=== PATIENT | female | born 1965 | race American Indian/Alaskan Native ===

== ENCOUNTER 2016-05-02 09:25 | Day surgery (SDC) | payer MEDICARE, MEDICAID ==
[~2016-05-02 09:25] MED LIST: Betamethasone Acetate/Betamethasone Sod Phosphate 30 MG/5 ML MDV IM ONE; Bupivacaine 0.5% 10 ML SDV INJECT ONE; Lactated Ringers 1,000 ML IV SCH; Lidocaine 1% 30 ML SDV INJECT ONE; Sodium Chloride 0.9% 10 ML Syringe FLUSH PRN; ceFAZolin 1 GM in Premix Bag 1 BAG IV ONE
--- NOTE | 2016-05-02 10:23 | PCM.SN ---
- Free Text/Narrative Note: 04/22/16 1000 preop patients history and physical reviewed along with allergies and medications no history of complications with past anesthesia heart regular rhythm lungs clear history of insulin dependent diabetes Bipolar disorder alcohol abuse in the past hyperlipidemia npo 8 hrs glucose this am was 117 mallampati 2 asa 2 plan local with iv sedation this along with risks goals alternatives explained to patient and accepted
[2016-05-02] MEDS ORDERED: Lidocaine 1% 30 ML SDV ONE (10:56)
[2016-05-02] MEDS ORDERED: Betamethasone Acetate/Betamethasone Sod Phosphate 30 MG/5 ML MDV ONE ×2 (10:57→14:18)
[2016-05-02] MEDS ORDERED: Lidocaine 1% 30 ML SDV INJECT ONE ×4 (13:03→14:19)
[2016-05-02] MEDS ORDERED: Bupivacaine 0.5% 10 ML SDV INJECT ONE ×4 (13:03→14:19)
[2016-05-02] MEDS ORDERED: Bupivacaine 0.5% 10 ML SDV ONE (13:42)
[2016-05-02] MEDS ORDERED: Acetaminophen/oxyCODONE 325-5 MG Tab PO PRN (14:48)
--- NOTE | 2016-05-02 14:52 | PCM.OPNOTE ---
- General Post-Op/Procedure Note Date of Surgery/Procedure: 05/02/16 Operative Procedure(s): Left foot talonavicular joint exostectomy, plantar fibroma excision, sub talar joint injection Pre Op Diagnosis: Left foot painful spurring talonavicular joint, plantar fibroma, subtalar joint arthritis. Post-Op Diagnosis: anne-marie Anesthesia Technique: Local, MAC Primary Surgeon: Lizet Nj Anesthesia Provider: Mac Sofia Pathology: left foot mass EBL in mLs: 5 Complications: none Condition: Good Free Text/Narrative:: Patient tolerated procedure well and was transported to pacu with vss and vascular status intact to left foot. TT 67 mins. Well padded dressing applied with cam boot. pathology sent to lab.
[2016-05-02] MEDS ORDERED: Midazolam 1 MG/ML 2 ML SDV IV ONE (15:07)
[2016-05-02] MEDS ORDERED: fentaNYL 100 MCG/2 ML SDV IV ONE (15:07)
[2016-05-02] MEDS ORDERED: Ondansetron 4 MG/2 ML SDV IV ONE (15:07)
[2016-05-02] MEDS ORDERED: Dexamethasone 4 MG/ML SDV IV ONE (15:07)
[2016-05-02] MEDS ORDERED: Propofol 200 MG/20 ML SDV IV ONE (15:07)
[2016-05-02] MEDS ORDERED: Ketorolac 30 MG/ML SDV IVPUSH ONE (15:07)
--- NOTE | 2016-05-03 07:26 | PCM.SN ---
- Free Text/Narrative Note: 05/03/16 late entry 05/02/16 1500 postop patient recovered well from iv sedation eating drinking denies pain or nausea no apparent complications with anesthesia
--- NOTE | 2016-05-03 08:29 | OR ---
DATE: 05/02/2016 PREOPERATIVE DIAGNOSES: 1. Left foot talonavicular joint bone spur. 2. Left foot soft tissue mass. 3. Left foot subtalar joint arthritis. POSTOPERATIVE DIAGNOSES: 1. Left foot talonavicular joint bone spur. 2. Left foot soft tissue mass. 3. Left foot subtalar joint arthritis. PROCEDURES PERFORMED: 1. Left foot talonavicular joint exostectomy. 2. Left foot soft tissue mass excision. 3. Left foot subtalar joint injection. ANESTHESIA: Local MAC with preoperative local block of 10 mL of 1:1 mixture 1% lidocaine plain and 0.5% Marcaine plain. TOURNIQUET TIME: 67 minutes, pneumatic ankle tourniquet. ESTIMATED BLOOD LOSS: Minimal. SPECIMEN REMOVED: Left foot mass. COMPLICATIONS: None. INDICATIONS: Mervat is a 50-year-old female, who presents with left foot pain. She states that the foot is very tender and will grind when she walks. She has tried Voltaren gel to the area with no relief. She does do a lot of walking during the day and feels pain and grinding in the foot, also there is a painful lump on the bottom of her foot that has been there for a few years now. Her foot pain has been going on for many years, and at this point, she has exhausted conservative treatment. She does wear a tennis shoe at all times. X-rays of the left foot reveals significant subtalar joint arthritis with periarticular spurring present, there is bone spur at the dorsal navicular with an ossicle at the TN joint. The patient voiced good understanding of proposed procedure and possible complications and elects to have surgery at this time. DESCRIPTION OF THE PROCEDURE: The patient was taken to the operating room, lying in the supine position. After adequate anesthesia induction as described above, the left foot was prepped and draped in the usual sterile fashion. A pneumatic ankle tourniquet was inflated to 220 mmHg. Attention was then directed to the dorsal medial aspect of the right foot where an approximately 5 cm linear incision was made. Sharp dissection was made just medial to the anterior tibial tendon. Sharp and blunt dissection was performed down to the level of the talonavicular joint. Which was exposed using a 15 blade. Care was taken to avoid all neurovascular bundles at this point. The soft tissue and anterior tibial tendon was reflected dorsal and laterally and the talonavicular joint was exposed. At this point, a large bony ossicle was noted to be loose in this area and was completely removed using an osteotome. A rongeur was then used to remove the remainder of the bone spur on the dorsal aspect of the navicular and also the lip at the navicular cuneiform joint. A bone rasp was used to smooth out all bone edges, and the joints were identified and noted to be healthy in appearance. The area was then put through range of motion. There was no grinding or crepitus present. The area was irrigated with copious amounts of sterile saline, and deep capsular closure was completed with 3-0 Vicryl, and skin closure was completed with 4-0 nylon. Attention was then directed to the left medial plantar arch where there was a large soft tissue mass. An approximately 4 cm linear incision was made just medial to the soft- tissue mass. Sharp and blunt dissection was performed down to the level of the mass. There was a portion of the soft-tissue mass that was adhered to the overlying skin, and this was sharply dissected away from the skin. The soft- tissue mass was removed in total, and it was coming from the plantar fascia, I did remove a 1 cm margin around the entire mass. The area was then inspected for any remaining mass, and there was none left. I did send the mass to pathology. The area was then irrigated with copious amounts of sterile saline. Deep closure was completed with 3-0 Vicryl, and skin closure was completed with 4-0 nylon. The areas were then dressed with Xeroform to the incision sites, fluffs, Webril, and an Rupert wrap. The patient tolerated anesthesia and the procedure well and was transferred to the recovery room with vital signs stable and vascular status intact as noted by immediate hyperemia to all digits upon deflation of the ankle tourniquet. She was placed in a Cam boot nonweightbearing. She is then discharged home when she met hospital discharge requirements. [facility] /[id number]
--- NOTE | 2016-05-06 10:21 | EKG ---
05/02/2016- ALF M[facility] - EKG done on a 50-year-old female showing sinus rhythm, normal axis, heart rate of 80 beats per minute. No acute ST-T wave changes. Normal intervals. [facility] /[id number]
[2016-06-27 13:07] VITALS: BP 99/47
== END 2016-05-02 15:30 | disposition home or self-care (01) ==
LOC: DL.SDS 09:25
PROVIDERS: ATTEND Podiatrist
DX: M72.2 Plantar fascial fibromatosis (principal); E11.9 Type 2 diabetes mellitus without complications; E78.00 Pure hypercholesterolemia, unspecified; Z90.49 Acquired absence of other specified parts of digestive tract; Z98.890 Other specified postprocedural states; Z79.899 Other long term (current) drug therapy; Z79.4 Long term (current) use of insulin; F17.210 Nicotine dependence, cigarettes, uncomplicated
CPT/HCPCS: 01480; 27635; 28045; 88305; 93005; 93010; J0690; J0702; J1100; J1885; J2250; J2405; J2704; J3010; J7120

== ENCOUNTER 2016-09-21 09:46 | Emergency (ER) | payer MEDICARE, MEDICAID ==
--- NOTE | 2016-09-21 10:02 | EDM.PDOC ---
ED HPI GENERAL MEDICAL PROBLEM - General Stated Complaint: SWOLLEN LIPS ON RIGHT SIDE Time Seen by Provider: 09/21/16 09:55 Source of Information: Reports: Patient - History of Present Illness INITIAL COMMENTS - FREE TEXT/NARRATIVE: 51 yo female presents with swelling and pain to right lower jaw. States that swelling began 2 days ago. She is concerned for infection. States that she has not had problems with her tooth before in this location. Denies fever, chills or other complaints. Onset Date: 09/19/16 Duration: Getting Worse Location: Reports: Face Quality: Reports: Ache Severity: Moderate Improves with: Reports: None Worsens with: Reports: None Associated Symptoms: Reports: No Other Symptoms Treatments [employer]: Reports: NSAIDS (ibuprofen) Right Face Pain Score (Numeric/FACES): 8 - Related Data Allergies Allergy/AdvReac Type Severity Reaction Status Date / Time No Known Allergies Allergy Verified 09/11/16 12:02 Home Meds: Home Meds Insulin Detemir [Levemir Flextouch] 40 units SQ BEDTIME 06/11/15 [History] Insulin Lispro [HumaLOG] 10 units SQ TIDMEALS 06/11/15 [History] Oxybutynin [Oxybutynin ER] 10 mg PO DAILY 06/11/15 [History] Pregabalin [Lyrica] 150 mg PO DAILY 06/11/15 [History] Venlafaxine HCl [Venlafaxine ER] 150 mg PO DAILY 06/11/15 [History] atorvaSTATin [Lipitor] 20 mg PO BEDTIME 06/11/15 [History] metFORMIN HCl [Metformin HCl] 1,000 mg PO BIDMEALS 06/11/15 [History] traZODone 300 mg PO BID 06/11/15 [History] ARIPiprazole [Abilify] 15 mg PO DAILY 12/20/15 [History] Diclofenac Sodium [Voltaren] 1 applic TOP ASDIRECTED PRN 12/20/15 [History] Lactulose [Lactulose] 10 g PO QPM 12/20/15 [History] Fenofibrate Nanocrystallized [Tricor] 145 mg PO DAILY 04/17/16 [History] Glimepiride [Glimepiride] 1 mg PO QAM 04/17/16 [History] tiZANidine [Zanaflex] 4 mg PO Q8H PRN 04/17/16 [History] oxyCODONE HCl [Oxycodone HCl ER] 20 mg PO BID PRN 09/11/16 [History] Past Medical History HEENT History: Reports: Other (See Below) Other HEENT History: DIABETIC EYE EXAM NO RETINOPATHY 03/14/2015; WEARS READERS Cardiovascular History: Reports: High Cholesterol, Hypertension, Syncope, Other (See Below) Other Cardiovascular History: HYPERCHOLESTEREMIA Respiratory History: Reports: None Gastrointestinal History: Reports: Cholelithiasis Genitourinary History: Reports: Urinary Incontinence, Other (See Below) Other Genitourinary History: RENAL [employer]ST [employer] History: Reports: Musculoskeletal History: Reports: Arthritis, Back Pain, Chronic, Other (See Below) Other Musculoskeletal History: SCIATICA Neurological History: Reports: Neuropathy, Peripheral Psychiatric History: Reports: Addiction, Anxiety, Bipolar, Depression, Suicidal Ideation, Other (See Below) Other Psychiatric History: CLAUSTROPHOBIA Endocrine/Metabolic History: Reports: Diabetes, Type II, IDDM Hematologic History: Reports: None Immunologic History: Reports: None Oncologic (Cancer) History: Reports: None Dermatologic History: Reports: Cellulitis, Other (See Below) Other Dermatologic History: HX OF RIGHT WRIST ABSCESS; HIDRADENITIS SUPPURATIVA - Infectious Disease History Infectious Disease History: Reports: Chicken Pox - Past Surgical History Head Surgeries/Procedures: Reports: None HEENT Surgical History: Reports: None Cardiovascular Surgical History: Reports: None Respiratory Surgical History: Reports: None GI Surgical History: Reports: Cholecystectomy Female Surgical History: Reports: Section Endocrine Surgical History: Reports: None Neurological Surgical History: Reports: None Musculoskeletal Surgical History: Reports: Other (See Below) Other Musculoskeletal Surgeries/Procedures:: LEFT WRIST TENDON REPAIR; SKIN GRAFT RIGHT ARM Oncologic Surgical History: Reports: None Dermatological Surgical History: Reports: Skin Graft, Other (See Below) Social & Family History - Family History Family Medical History: Noncontributory Endocrine/Metabolic: Reports: Diabetes, type II Dermatologic: Reports: Eczema Oncologic: Reports: Lung, Ovarian - Tobacco Use Smoking Status *Q: Current Every Day Smoker Years of Tobacco use: 25 Packs/Tins Daily: 1 Second Hand Smoke Exposure: Yes - Caffeine Use Caffeine Use: Reports: Coffee Other Caffeine Use: RARELY SOCIALLY FOR COFFEE USUSAGE; SODA POP DAILY - Recreational Drug Use Recreational Drug Use: No Drug Use in Last 12 Months: No - Living Situation & Occupation Living situation: Reports: with Family ED ROS ENT - Review of Systems Review Of Systems: ROS reveals no pertinent complaints other than HPI. ED EXAM, ENT - Physical Exam Exam: See Below Exam Limited By: No Limitations General Appearance: Alert, WD/WN, No Apparent Distress Eye Exam: Bilateral Eye: PERRL Ears: Normal External Exam, Normal Canal, Hearing Grossly Normal, Normal TMs Nose: Normal Inspection, Normal Mucousa, No Blood Mouth/Throat: Dental Pain (dental caries, missing teeth to right lower mandible. ), Dental Tenderness, Gum Swelling Head: Atraumatic, Normocephalic Respiratory/Chest: No Respiratory Distress, Lungs Clear, Normal Breath Sounds, No Accessory Muscle Use, Chest Non-Tender Cardiovascular: Normal Peripheral Pulses, Regular Rate, Rhythm, No Edema, No Gallop, No JVD, No Murmur, No Rub ED I&D PROCEDURES - I&D Site: right lower periapical jaw Skin prep: Providone-Iodine (Betadine) Local anesthesia - Lidocaine (Xylocaine): 1% Plain Local Anesthetic Volume: 2cc Area Incised With: 11 Blade Drainage: Purulent, Bloody, Moderate Amount Probed to Break Up Loculations: Yes Packed With: None Complications: No Course - Vital Signs Last Recorded V/S: Last Vital Signs Temp 96.0 F 09/21/16 09:51 Pulse 98 09/21/16 09:51 Resp 18 09/21/16 09:51 BP 100/70 09/21/16 09:51 Pulse Ox 100 09/21/16 09:51 - Orders/Labs/Meds Orders: Active Orders 24 hr Category Date Time Status Max Facial Sinus w Cont [CT] Urgent Exams 09/21/16 10:09 Taken Sodium Chloride 0.9% [Saline Flush] Med 09/21/16 10:11 Active 10 ml FLUSH ASDIRECTED PRN Saline Lock Insert [OM.PC] Stat Oth 09/21/16 10:11 Ordered Medication Orders Sodium Chloride (Saline Flush) 10 ml FLUSH ASDIRECTED PRN PRN Reason: Keep Vein Open Last Admin: 09/21/16 10:30 Dose: 10 ml Labs: Laboratory Tests 09/21/16 09/21/16 Range/Units 10:34 10:34 WBC 7.9 (5.0-10.0) 10^3/uL RBC 5.50 H (4.2-5.4) 10^6/uL Hgb 17.0 H (12.0-16.0) g/dL Hct 50.0 H (37.0-47.0) % MCV 90.9 (80-100) fL MCH 30.9 (27.0-34.0) pg MCHC 34.0 (33.0-35.0) g/dL Plt Count 227 (150-450) 10^3/uL Neut % (Auto) 58.3 (42.2-75.2) % Lymph % (Auto) 30.8 (20.5-50.1) % [place] % (Auto) 9.3 H (2-8) % Eos % (Auto) 1.3 (1.0-3.0) % Baso % (Auto) 0.3 (0.0-1.0) % Sodium 139 (135-145) mmol/L Potassium 4.2 (3.6-5.0) mmol/L Chloride 101 (101-111) mmol/L Carbon Dioxide 27.0 (21.0-31.0) mmol/L Anion Gap 15.2 BUN 12 (7-18) mg/dL Creatinine 0.6 (0.6-1.3) mg/dL Est Cr Clr Drug Dosing 93.64 mL/min Estimated GFR (MDRD) > 60 Glucose 266 H (74-105) mg/dL Calcium 9.6 (8.4-10.2) mg/dl Meds: Medications Generic Name Dose Route Start Last Admin Trade Name Freq PRN Reason Stop Dose Admin Sodium Chloride 10 ml 09/21/16 10:11 09/21/16 10:30 Saline Flush FLUSH 10 ml ASDIRECTED PRN Administration Keep Vein Open Discontinued Medications Generic Name Dose Route Start Last Admin Trade Name Freq PRN Reason Stop Dose Admin Acetaminophen 650 mg 09/21/16 10:10 09/21/16 10:20 Tylenol PO 09/21/16 10:11 650 mg NOW ONE Administration Insulin Human Regular 3 unit 09/21/16 11:09 09/21/16 11:38 Humulin R SUBCUT 09/21/16 11:10 3 units ONETIME ONE Administration Protocol Iopamidol 100 ml 09/21/16 10:45 09/21/16 11:47 Isovue-300 (61%) IVPUSH 09/21/16 10:46 100 ml ONETIME ONE Administration Lidocaine HCl 30 ml 09/21/16 12:35 Xylocaine-Mpf 1% INJECT 09/21/16 12:36 ONETIME ONE Penicillin V Potassium 500 mg 09/21/16 10:10 09/21/16 10:20 Veetids PO 09/21/16 10:11 500 mg ONETIME ONE Administration Departure - Departure Time of Disposition: 13:04 Disposition: Home, Self-Care 01 Condition: Good Clinical Impression: Dental abscess - Discharge Information Instructions: Dental Abscess Forms: ED Department Discharge Additional Instructions: Keep wound clean and dry. Return in 2 days to clinic or PCP for re-check. Continue antibiotic for 10 days. return for fever, nausea, vomiting or worsening symptoms. - My Orders Last 24 Hours: My Active Orders 09/21/16 10:09 Max Facial Sinus w Cont [CT] Urgent 09/21/16 10:11 Sodium Chloride 0.9% [Saline Flush] 10 ml FLUSH ASDIRECTED PRN Saline Lock Insert [OM.PC] Stat - Assessment/Plan Last 24 Hours: My Active Orders 09/21/16 10:09 Max Facial Sinus w Cont [CT] Urgent 09/21/16 10:11 Sodium Chloride 0.9% [Saline Flush] 10 ml FLUSH ASDIRECTED PRN Saline Lock Insert [OM.PC] Stat
[2016-09-21] MEDS ORDERED: Acetaminophen 325 MG Tab PO ONE (10:10)
[2016-09-21] MEDS ORDERED: Penicillin V Potassium 250 MG Tab PO ONE (10:10)
[2016-09-21] MEDS ORDERED: Sodium Chloride 0.9% 10 ML Syringe FLUSH PRN (10:11)
[2016-09-21] MEDS ORDERED: Iopamidol 612 MG/ML 100 ML Bottle IVPUSH ONE (10:45)
[2016-09-21 11:02] LABS: CHLORIDE,CL 101 mmol/L (101-111); SODIUM,NA 139 mmol/L (135-145)
[2016-09-21] MEDS ORDERED: Insulin Regular, Human 100 Units/ML 3 ML Vial SUBCUT ONE (11:09)
[2016-09-21] MEDS ORDERED: Lidocaine 1% 30 ML SDV INJECT ONE (12:35)
[2016-09-21 13:08] VITALS: BP 97/65
== END 2016-09-21 13:23 | disposition home or self-care (01) ==
LOC: DL.ED 09:46
DX: K04.7 Periapical abscess without sinus (principal); E78.00 Pure hypercholesterolemia, unspecified; I10 Essential (primary) hypertension; M19.90 Unspecified osteoarthritis, unspecified site; F31.9 Bipolar disorder, unspecified; F17.210 Nicotine dependence, cigarettes, uncomplicated; E10.9 Type 1 diabetes mellitus without complications; Z90.49 Acquired absence of other specified parts of digestive tract; Z79.4 Long term (current) use of insulin; Z79.899 Other long term (current) drug therapy
CPT/HCPCS: 36415; 41800; 70487; 80048; 85025; 96372; 99284; A9270; J1815; J7050; Q9967

== ENCOUNTER 2017-03-27 08:56 | Day surgery (SDC) | payer MEDICARE, MEDICAID ==
[~2017-03-27 08:56] MED LIST changes: -Betamethasone Acetate/Betamethasone Sod Phosphate 30 MG/5 ML MDV IM ONE; -Bupivacaine 0.5% 10 ML SDV INJECT ONE; -Lactated Ringers 1,000 ML IV SCH; -Lidocaine 1% 30 ML SDV INJECT ONE; -ceFAZolin 1 GM in Premix Bag 1 BAG IV ONE
[2017-03-27] MEDS ORDERED: fentaNYL 100 MCG/2 ML SDV IV ONE (08:57)
[2017-03-27] MEDS ORDERED: Propofol 200 MG/20 ML SDV IV ONE (08:57)
[2017-03-27] MEDS ORDERED: Ondansetron 4 MG/2 ML SDV IV ONE (08:57)
[2017-03-27] MEDS ORDERED: Midazolam 1 MG/ML 2 ML SDV IV ONE (08:57)
[2017-03-27] MEDS ORDERED: ceFAZolin 1 GM in Premix Bag 1 BAG IV ONE (09:00)
[2017-03-27] MEDS ORDERED: Lactated Ringers 1,000 ML IV SCH (09:00)
[2017-03-27] MEDS ORDERED: Lidocaine 1% 30 ML SDV ONE (11:46)
[2017-03-27] MEDS ORDERED: Lidocaine 1% 30 ML SDV INJECT ONE ×2 (12:19→12:51)
[2017-03-27] MEDS ORDERED: Bupivacaine 0.5% 10 ML SDV INJECT ONE ×2 (12:19→12:51)
[2017-03-27] MEDS ORDERED: Acetaminophen/oxyCODONE 325-5 MG Tab PO PRN (12:57)
--- NOTE | 2017-03-27 13:00 | PCM.OPNOTE ---
- General Post-Op/Procedure Note Date of Surgery/Procedure: 03/27/17 Operative Procedure(s): right foot talonavicular joint exostectomy Pre Op Diagnosis: right foot painful bone fragment/spurring TN joint Post-Op Diagnosis: anne-marie Anesthesia Technique: Local, MAC Primary Surgeon: Lizet Nj Anesthesia Provider: Mac Liang EBL in mLs: 10 Complications: none Condition: Good Free Text/Narrative:: Intake & Output 03/26/17 03/27/17 03/27/17 22:59 06:59 14:59 Intake Total 50 Balance 50 Pt tolerated procedure well and was transported to recovery with vascular status intact to right foot. TT 25 mins. Well padded compression dressing with cam boot applied.
--- NOTE | 2017-03-27 13:35 | CR ---
Solitary lateral fluoroscopic spot film foot. No interpretive charge.
[2017-03-27 13:49] VITALS: BP 135/80
--- NOTE | 2017-03-28 12:13 | OR ---
DATE: 03/27/2017 PREOPERATIVE DIAGNOSIS: Right foot bone spur, talonavicular joint. POSTOPERATIVE DIAGNOSIS: Right foot bone spur, talonavicular joint. PROCEDURE PERFORMED: Right foot talonavicular joint exostectomy with bone fragment excision. ANESTHESIA: Local MAC with preoperative local block of 10 mL 1:1 mixture of 1% lidocaine plain and 0.5% Marcaine plain. TOURNIQUET TIME: 25 minutes. Pneumatic ankle tourniquet. ESTIMATED BLOOD LOSS: Minimal. SPECIMEN: None. COMPLICATIONS: None. INDICATIONS: Mervat is a 51-year-old female, who is status post left foot bone spur excision done on May 02, 2016. She has the same problem on her right foot and is having pain in that same area. Her left foot is healed and she would now like surgery on the right foot. This area is painful for her and she can feel grinding when she is walking. X-rays of the right foot reveal bony ossicle with large spurring at the dorsal talonavicular joint. The patient voiced good understanding of the proposed procedure and possible complications and elects to have surgery at this time. DESCRIPTION OF THE PROCEDURE: The patient was taken to the operating room lying in supine position. After adequate anesthesia induction as described above, the right foot prepped and draped in the usual sterile fashion. A pneumatic ankle tourniquet was inflated to 225 mmHg. Attention was then directed to the dorsal medial aspect of the right foot where an approximately 5 cm linear incision was made. Before the tourniquet was applied, the dorsalis pedis artery was marked out and the incision was made just medial to the neurovascular bundle. Sharp and blunt dissection were performed down to the talonavicular joint. The joint was exposed using a #15 blade with care to avoid all neurovascular bundles. The soft tissue and extensor tendon of the hallux were reflected dorsally and laterally and the talonavicular joint was exposed. A large bony ossicle was noted to be loose at the dorsal talonavicular joint and this was completely excised. The osteotome was then used to remove the bone spur at the talonavicular joint. A rasp was then used to smooth out the area. The joint was visually inspected and no remaining spurring was noted. Fluoroscopy was used to verify adequate resection of the bone spur. The remainder of the joint appeared to be healthy in appearance. The areas then put through range of motion and there was no grinding or crepitus present. The area was then irrigated with copious amounts of sterile saline. Deep closure was completed with 3-0 Vicryl and skin closure was completed with 4-0 nylon. The area was then dressed with Xeroform to the incision site, fluffs, Webril, and a well padded compression dressing. She was placed into a CAM boot. The patient tolerated anesthesia and the procedure well, and she was transported to recovery room with vital signs stable, and vascular status intact as noted by immediate hyperemia to all digits upon deflation of the ankle tourniquet. The patient was then discharged home when she met hospital discharge requirements. [facility] /[id number]
== END 2017-03-27 14:25 | disposition home or self-care (01) ==
LOC: DL.SDS 08:56
PROVIDERS: ATTEND Podiatrist
DX: M77.51 Other enthesopathy of right foot and ankle (principal); G89.29 Other chronic pain; M54.9 Dorsalgia, unspecified; E11.9 Type 2 diabetes mellitus without complications; E78.00 Pure hypercholesterolemia, unspecified; F31.9 Bipolar disorder, unspecified; Z79.84 Long term (current) use of oral hypoglycemic drugs; Z79.899 Other long term (current) drug therapy; F17.210 Nicotine dependence, cigarettes, uncomplicated
CPT/HCPCS: 01470; 28120; 82962; J0690; J2250; J2405; J2704; J3010; J7120

== ENCOUNTER 2022-05-07 06:35 | Day surgery (SDC) | payer MEDICARE, MEDICAID ==
[~2022-05-07 06:35] MED LIST changes: +Dextrose 5%-0.45% NaCl 1,000 ML IV SCH; +Midazolam 1 MG/ML 2 ML SDV ONE; -Sodium Chloride 0.9% 10 ML Syringe FLUSH PRN; +fentaNYL 100 MCG/2 ML SDV ONE
[2022-05-07] MEDS ORDERED: Midazolam 1 MG/ML 2 ML SDV IV ONE ×3 (06:36→07:51)
[2022-05-07] MEDS ORDERED: fentaNYL 100 MCG/2 ML SDV IV ONE ×3 (06:36→07:49)
[2022-05-07 10:01] VITALS: BP 125/75; PULSE 96
== END 2022-05-07 09:50 | disposition home or self-care (01) ==
LOC: DL.ENDO 06:35
PROVIDERS: ATTEND Internal Medicine Gastroenterology
DX: K22.10 Ulcer of esophagus without bleeding (principal); B37.81 Candidal esophagitis; K29.70 Gastritis, unspecified, without bleeding; E11.43 Type 2 diabetes mellitus with diabetic autonomic (poly)neuropathy; K31.84 Gastroparesis; F31.9 Bipolar disorder, unspecified; E78.00 Pure hypercholesterolemia, unspecified; F17.210 Nicotine dependence, cigarettes, uncomplicated; Z98.890 Other specified postprocedural states
CPT/HCPCS: 87077; 88305; 88312; 88342; J2250; J3010; J7042